=== PATIENT | male | born 1985 | race Two or more races ===

== ENCOUNTER 2017-02-09 19:34 | Emergency (ER) | payer SELFPAY ==
[~2017-02-09] VITALS: Ht 165.1 cm; Wt 74.0 kg
[~2017-02-09 19:34] MED LIST: ACET500C5 PO; BEN50 PO; GUAI120S26 PO; HC30CR25 TOP; LORA-186 PO; MAG-19 PO; PANT40TA3 PO
[2017-02-09 19:58] VITALS: Ht 165.1 cm; Wt 74.0 kg
--- NOTE | 2017-02-09 22:07 | ERD ---
ER Documentation Chief Complaint Date/Time DATE: 02/09/17 TIME: 22:04 Chief Complaint MULT. COMPL. COUGH/ABD PAIN, +NAUSEA AND DIZZINESS X1 YEAR HPI 31-year-old otherwise healthy male presents the emergency department complaining of cough with phlegm 1 year. Patient states that he has been seen previously for this complaint and was prescribed promethazine. Patient states the promethazine has not helped his symptoms. Patient states the cough occurs throughout the day and he constantly feels like he needs to clear his throat. Patient also states that he has been experiencing intermittent subjective fever at night. Patient denies chills, ear pain, sore throat or other respiratory symptoms. Patient also complains of epigastric pain which she describes as burning and is worse after eating. Patient states he is not experiencing any pain currently but that it is usually associated with nausea. Patient denies any vomiting. Patient denies any poly-dips yeah, polyuria, oliguria, other abdominal pain, wheezing, or facial swelling. ROS All systems reviewed and are negative except as per history of present illness. Medications Home Meds Active Scripts Hydrocortisone* Topical (Hydrocortisone* Topical) 2.5%-28.3 Gm Cream..g., 1 APPLIC TOP BID, #1 TUB Prov:RENALDO MILLER [employer]. [employer] 01/18/16 Diphenhydramine Hcl* (Benadryl*) 50 Mg Cap, 50 MG PO Q6 Y for ITCHING, #30 CAP Prov:RENALDO MILLER [employer]. [employer] 16 Acetaminophen* (Tylophen*) 500 Mg Capsule, 500 MG PO Q6H Y for PAIN AND OR ELEVATED TEMP, #30 TAB Prov:ANA LILIA REIS [employer] 06/21/15 Pantoprazole* (Protonix*) 40 Mg Tablet.dr, 40 MG PO DAILY, #30 TAB Prov:ANA LILIA REIS [employer] 06/21/15 Magaldrate/Simethicone* (Mylanta*) 355 Ml Susp, 30 ML PO QID Y for GASTROINTESTINAL UPSET, #1 BOTTLE Prov:ANA LILIA REIS [employer] 06/21/15 Esbafuxitxc-Y-Hqyvncojdw Hb* (Guaifenesin* DM Syrup) 120 Ml Syrup, 10 ML PO Q4H Y for COUGH, #1 BOTTLE Prov:ANA LILIA REIS NP 06/21/15 Loratadine* (Claritin*) 10 Mg Tablet, 10 MG PO DAILY, #30 TAB Prov:ANA LILIA REIS NENITA Guerra [employer] 06/21/15 Allergies Allergies: Coded Allergies: No Known Allergy (Unverified , 06/20/15) PMhx/Soc History of Surgery: No Anesthesia Reaction: No Hx Neurological Disorder: No Hx Respiratory Disorders: No Hx Cardiac Disorders: No Hx Psychiatric Problems: No Hx Miscellaneous Medical Probl: No Hx Alcohol Use: No Hx Substance Use: No Hx Tobacco Use: No Physical Exam Vitals Vital Signs Date Time Temp Pulse Resp B/P Pulse Ox O2 Delivery O2 Flow Rate FiO2 02/09/17 19:58 98.3 87 18 156/92 99 Physical Exam Const: Well developed, well-nourished, no acute distress Head: Atraumatic Eyes: Normal Conjunctiva ENT: Normal External Ears, Nose and Mouth. Oropharynx mildly erythematous without evidence of tonsillar swelling or exudate bilaterally. Tympanic membranes without erythema or swelling. Neck: Full range of motion..~ No meningismus. Resp: Clear to auscultation bilaterally, no wheezes, rhonchi, rales. Cardio: Regular rate and rhythm, no murmurs Abd: Soft, non tender, non distended. Normal bowel sounds Skin: No petechiae or rashes Back: No midline or flank tenderness Ext: No cyanosis, or edema Neur: Awake and alert Psych: Normal Mood and Affect Procedures/MDM This is a pleasant, otherwise healthy 31-year-old male presents the emergency department complaining of chronic productive cough as well as burning epigastric pain. Patient afebrile upon arrival and physical exam unremarkable for any tenderness to palpation of the abdomen. Patient's physical exam unremarkable for any obvious source of upper respiratory bacterial infection. Lungs clear to auscultation bilaterally. Vital signs reviewed. Patient was afebrile, non-tachycardic and not hypoxic upon arrival. Patient's blood pressure was elevated (>120/80) but appears stable without evidence of hypertension emergency or urgency. The patient was counseled about the risks of hypertension and urged to pursue outpatient monitoring and therapy within a week with their primary care physician. Patient's history and physical consistent with chronic productive cough and acid reflux. At this time I have low suspicion for perforated peptic ulcer, cholecystitis, pancreatitis, or other acute abdomen. Based on patient's history of present illness and physical examination the decision was made to discharge. There is no evidence of life threatening injuries or illnesses at this time. On re-examination, patient resting in no distress, stable vital signs, reports feeling safe for discharge with outpatient follow up with PMD in 1-2 days. Patient given return precautions. Departure Diagnosis: Primary Impression: Cough Additional Impressions: Nausea Epigastric abdominal pain Phlegm in throat RACHANA LEWIS PA-C Feb 09, 2017 22:07
[2017-02-09] MEDS ORDERED: OMEP20CA16 PO (22:17)
[2017-02-09] MEDS ORDERED: AZIT250T94 PO (22:17)
[2017-02-09] MEDS ORDERED: CETI10CA PO (22:17)
[2017-02-09] MEDS ORDERED: RANI150T9 PO (22:17)
== END 2017-02-09 22:34 | disposition home or self-care (01) ==
LOC: FTE 19:34
DX: R05 Cough (principal); R11.0 Nausea; R10.13 Epigastric pain; R09.3 Abnormal sputum
CPT/HCPCS: 99283